=== PATIENT | female | born 1940 | race Caucasian/White ===

== ENCOUNTER → 2018-08-16 | Day surgery (SDC) | payer MEDICARE ==
[~2018-08-16] MED LIST: ASPIR 8181 MG PO; BIOTIN1 MG PO; ESTRADIOL1 MG PO; FENTANYL CITRATE/PF 100MCG/2 ML INJ ONE; LOSARTAN POTASS25 MG PO; MIDAZOLAM HCL 2 MG/2 ML VIAL ONE; MULTI-VITAMIN1 EACH PO; OR PHACO EYE KIT ONE; PREOP PHACO EYE KIT ONE; SYNTHROID100 MCG PO; TUMERIC PO; VITAMIN B-121000 MC1 PO
[2018-08-16 15:42] VITALS: BP 139/88
== END | disposition home or self-care (01) ==
LOC: OR 12:45
PROVIDERS: ATTEND Ophthalmology
DX: H25.11 Age-related nuclear cataract, right eye (principal); E03.9 Hypothyroidism, unspecified; I44.0 Atrioventricular block, first degree; R01.1 Cardiac murmur, unspecified; I83.90 Asymptomatic varicose veins of unspecified lower extremity; F17.210 Nicotine dependence, cigarettes, uncomplicated; Z79.82 Long term (current) use of aspirin; Z88.5 Allergy status to narcotic agent
CPT/HCPCS: 66984; J2250; V2787

== ENCOUNTER → 2018-08-23 | Day surgery (SDC) | payer MEDICARE | END | disposition home or self-care (01) | LOC: OR 10:11 | PROVIDERS: ATTEND Ophthalmology | DX: H25.12 Age-related nuclear cataract, left eye (principal); I10 Essential (primary) hypertension; E03.9 Hypothyroidism, unspecified; I49.9 Cardiac arrhythmia, unspecified; R01.1 Cardiac murmur, unspecified; Z88.6 Allergy status to analgesic agent; I44.0 Atrioventricular block, first degree; Z79.82 Long term (current) use of aspirin; Z87.891 Personal history of nicotine dependence | CPT/HCPCS: 66984; J2250; V2787 ==

== ENCOUNTER → 2025-05-29 | Outpatient (REF) | payer MEDICARE ==
[~2025-05-29] MED LIST changes: -FENTANYL CITRATE/PF 100MCG/2 ML INJ ONE; -MIDAZOLAM HCL 2 MG/2 ML VIAL ONE; -OR PHACO EYE KIT ONE; -PREOP PHACO EYE KIT ONE
== END ==
LOC: MAMMO 14:08
PROVIDERS: ATTEND Student in an Organized Health Care Education/Training Program
DX: Z12.31 Encounter for screening mammogram for malignant neoplasm of breast (principal)
CPT/HCPCS: 77067